=== PATIENT | female | born 1960 | race Caucasian/White ===

== ENCOUNTER 2016-09-04 06:45 | Day surgery (SDC) | payer BC ==
--- NOTE | ~2016-09-04 | EGD ---
EGD REPORT [facility] 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 Estimated blood loss: None. Procedure: Pre-Anesthesia Assessment: - ASA Grade Assessment: II - A patient with mild systemic disease. After obtaining informed consent, the endoscope was passed under direct vision. Throughout the procedure, the patient's blood pressure, pulse, and oxygen saturations were monitored continuously. The Endoscope was introduced through the mouth, and advanced to the second part of duodenum. Findings: Endosonographic Finding : An anechoic lesion suggestive of a cyst was identified in the pancreatic head. The lesion measured 15 mm by 7 mm in maximal cross-sectional diameter. There was a single compartment without septae. The outer wall of the lesion was thin. There was no associated mass. There was no internal debris within the fluid-filled cavity. Needle aspiration for fluid was performed. Color Doppler imaging was utilized prior to needle puncture to confirm a lack of significant vascular structures within the needle path. One pass was made with the 22 gauge needle. The amount of fluid collected was 0.4 mL. Sample(s) were sent for cytology. The pancreatic duct had a normal endosonographic appearance in the entire pancreas. The pancreatic duct measured up to 1 mm in diameter. There was no sign of significant endosonographic abnormality in the common bile duct. Endosonographic imaging of the pancreas showed no chronic pancreatitis, no mass and no pancreatic duct changes. No lymphadenopathy seen. There was no sign of significant endosonographic abnormality in the examined duodenum. Endosonographic images of the stomach were unremarkable. There was no sign of significant endosonographic abnormality in the esophagus. EGD REPORT [address] [id number] [place]. [address] NAME: DALI RODRIGUEZ : 56 STATUS : REG [facility] [place] PAT#: [id number] AGE: 56 ADM/REG DATE : 09/04/16 MR#: [id number] REPORT SERV DATE: 09/04/16 DICTATED BY: WILNER WHITLEY DATE: 09/04/16 REPORT STATUS : Draft TRANSCRIBED BY: [employer] DATE: 09/04/16 Impression: - A 15 mm by 7 mm cystic lesion was seen in the pancreatic head. - The pancreatic duct had a normal endosonographic appearance in the entire pancreas. The pancreatic duct measured up to 1 mm in diameter. - There was no sign of significant pathology in the common bile duct. - There was no sign of significant pathology in the examined duodenum. - Endosonographic images of the stomach were unremarkable. - There was no sign of significant pathology in the esophagus. Recommendation: - Return to previous diet. - Continue present medications. - Await cytology results. - Cipro (ciprofloxacin) 500 mg PO BID for 2 days. Procedure Code(s): --- Professional --- 09185, Esophagogastroduodenoscopy, flexible, transoral; with transendoscopic ultrasound-guided intramural or transmural fine needle aspiration/biopsy(s) (includes endoscopic ultrasound examination of the esophagus, stomach, and either the duodenum or a surgically altered stomach where the jejunum is examined distal to the anastomosis) Diagnosis Code(s): --- Professional --- K86.2, Cyst of pancreas CPT copyright 2013 [employer]. All rights reserved. The codes documented in this report are preliminary and upon electrician station assistant review may be revised to meet current compliance requirements. WILNER WHITLEY, 09/04/2016 8:23 AM Number of Addenda: 0 Note Initiated On: 09/04/2016 7:55 AM [address] [place] [address]
[~2016-09-04 06:45] MED LIST: AMIT10 PO; ASAB PO; COZ50 PO; CYANO1000T PO; LEVOTHYROXIN50 MCG PO; LINZESS 290 M290 MCG PO; LOP25 PO; NEXIUM40 PO; VITAMIN D31000 UNIT PO; ZOCOR10 PO; [UNRECOGNIZED DRUG - REMARK]
== END 2016-09-04 23:59 | disposition home or self-care (01) ==
LOC: DMU 06:45
PROVIDERS: Internal Medicine Gastroenterology
PROC: 0DJ08ZZ Inspection of Upper Intestinal Tract, Via Natural or Artificial Opening Endoscopic (ICD-10-PCS; principal; 2016-09-04 08:00)
DX: K86.2 Cyst of pancreas (principal); I10 Essential (primary) hypertension; E03.9 Hypothyroidism, unspecified; E78.00 Pure hypercholesterolemia, unspecified; Z87.891 Personal history of nicotine dependence; M19.90 Unspecified osteoarthritis, unspecified site; Z98.51 Tubal ligation status; Z79.899 Other long term (current) drug therapy
CPT/HCPCS: 88173; C1725; J1956